=== PATIENT | female | born 1990 | race Hispanic/Latino ===

== ENCOUNTER 2018-11-10 22:15 | Emergency (ER) | payer OTHER, SELFPAY ==
[2018-11-10 23:05] LABS: Bilirubin Negative (Negative); Blood, Urine Moderate (Negative); Clarity Slightly Cloudy (Clear); Glucose, Urine (Dipstick) Negative (Negative); Leukocyte Negative (Negative); Nitrite Negative (Negative); Protein, Urine (Dipstick) Trace mg/dL (Neg-Trace); Urobilinogen 0.2 mg/dL (0.2-1.0); pH, Urine 7.5 (5.0-9.0)
[2018-11-10 23:07] LABS: #Basophils 0.2 thou/uL (0.0-0.2); #Eosinphils 0.2 thou/uL (0.0-0.7); #Lymphocytes 2.4 thou/uL (1.20-3.40); #Monocytes 0.7 thou/uL (0.11-0.59); #Neutrophils 7.2 thou/uL (1.40-6.50); %Basophils 1.8 % (0.0-1.0); %Eosinophils 2.3 % (0.0-10.0); %Lymphocytes 22.1 % (21.0-51.0); %Monocytes 6.6 % (0.0-10.0); %Neutrophils 67.2 % (42.0-75.0); Hemoglobin 13.3 g/dL (12.0-16.0); Mean Corpuscular HGB CONC 34.8 g/dL (32.0-36.0); Mean Corpuscular Hemoglobin 30.1 pg (27.0-31.0); Mean Corpuscular Volume 86.5 fL (78.0-98.0); Mean Platelet Volume 11.3 fL (7.4-10.4); Platelet Count 261 thou/uL (130-400); RBC Distribution Width 11.8 % (11.5-14.5); Red Blood Cell (RBC) Count 4.43 mill/uL (4.20-5.40); White Blood Cell (WBC) Count 10.6 thou/uL (4.8-10.8)
[2018-11-10 23:11] LABS: Bacteria/HPF None Seen HPF (None Seen); Crystals/HPF 2+ AMORPH PHOS HPF (Negative); Hyaline Casts/LPF 0-3 HYALINE CAST LPF (0-3 Hyaline); Squamous Epithelial 0-3 HPF (0-3); WBC/HPF 0-3 HPF (0-3)
--- NOTE | 2018-11-11 08:31 | ULT ---
PRELIMINARY REPORT/[facility]/EMERGENTY AFTER-HOURS PROCEDURE US First Trimester, Transabdominal EXAM DATE/TIME: 11/11/2018 12:24 AM CLINICAL HISTORY: 28 years old, female; Pain and signs and symptoms; Lmp or gestational age (in weeks): 8w5d; Antepartu m complications; Bleeding and other: Spotting; complicated by abdominal or pelvic pain; Low er; First trimester; TECHNIQUE: Real-time transabdominal obstetrical ultrasound of the maternal pelvis and a first trimester pregnanc y, less than 14 weeks 0 days, with image documentation. COMPARISON: No relevant prior studies available. FINDINGS: There is a live single intrauterine with an estimated heart rate of 171 beats per min [place]. GESTATIONAL SAC - 3.7 cm - C/W 9 weeks 0 days CRL - 17.7 mm - C/W 8 weeks 2 days YOLK SAC - 5.1 mm There are no uterine abnormalities or significant free intraperitoneal fluid. The adenxa are unremark able. IMPRESSION: Single live intrauterine with an estimated gestational age of 8 weeks 5 days by ultrasound criteria. Expected due date 06/18/2019 by ultrasound criteria Thank you for allowing us to participate in the care of your patient. Dictated and Authenticated by: Terrance Dumont MD 11/11/2018 1:11 AM Central Time ([place] & [place]) FINAL REPORT EMERGENT AFTER HOURS PELVIC ULTRASOUND: HISTORY: Vaginal bleeding with . FINDINGS: Real-time imaging of the pelvis was obtained both transabdominally as well as with an endovaginal pro be. This shows a single viable intrauterine . heart rate is 171 b.p.m. No subchorio jnaine bleed is identified. The crown to rump length measurements are 1.8 cm corresponding to 8 weeks 2 days, gestational sac measures 3.7 cm corresponding to 9 weeks 0 days. The adnexa were not visualized on this exam. IMPRESSION: 1. Single viable intrauterine . Measurements would correspond to a gestational age of 8 we eks 5 days with estimated date of delivery 06/18/2019. 2. This report is in agreement with the temporary report issued by [facility]. POS: OFF
[2018-11-14 01:07] LABS: Chlamydia by PCR Not Detected (NotDetected); GC by PCR Not Detected (NotDetected)
== END 2018-11-11 01:38 | disposition home or self-care (01) ==
LOC: SCSER 22:15
DX: O20.0 Threatened abortion (principal); Z3A.01 Less than 8 weeks gestation of pregnancy
CPT/HCPCS: 76856; 81003; 81015; 84702; 85025; 86900; 86901; 87480; 87491; 87510; 87591; 87660

== ENCOUNTER 2018-12-05 23:07 | Emergency (ER) | payer OTHER ==
[2018-12-05 23:54] LABS: #Basophils 0.1 thou/uL (0.0-0.2); #Eosinphils 0.1 thou/uL (0.0-0.7); #Lymphocytes 2.3 thou/uL (1.20-3.40); #Monocytes 0.6 thou/uL (0.11-0.59); #Neutrophils 8.4 thou/uL (1.40-6.50); %Eosinophils 1.2 % (0.0-10.0); %Lymphocytes 20.1 % (21.0-51.0); %Monocytes 4.9 % (0.0-10.0); %Neutrophils 72.8 % (42.0-75.0); Hemoglobin 12.6 g/dL (12.0-16.0); Mean Corpuscular HGB CONC 35.6 g/dL (32.0-36.0); Mean Corpuscular Hemoglobin 30.2 pg (27.0-31.0); Mean Corpuscular Volume 84.8 fL (78.0-98.0); Mean Platelet Volume 9.6 fL (7.4-10.4); Platelet Count 235 thou/uL (130-400); RBC Distribution Width 11.7 % (11.5-14.5); Red Blood Cell (RBC) Count 4.17 mill/uL (4.20-5.40); White Blood Cell (WBC) Count 11.5 thou/uL (4.8-10.8)
[2018-12-06 00:05] LABS: ALT (SGPT) 40 U/L (8-55); AST (SGOT) 23 U/L (5-34); Alkaline Phosphatase 40 U/L (40-150); Anion Gap 13 mmol/L (10-20); BUN (Urea Nitrogen) 7 mg/dL (7.0-18.7); Bilirubin, Total 0.3 mg/dL (0.2-1.2); Calc. Creatinine Clearance 0 mL/min (70-130); Calcium 9.4 mg/dL (7.8-10.44); Carbon Dioxide 21 mmol/L (22-29); Chloride 107 mmol/L (98-107); Estimated GFR-MDRD Greater than 90; Globulin 2.6 g/dL (2.4-3.5); Glucose 95 mg/dL (70-105); Lipase 18 U/L (8-78); Potassium 3.5 mmol/L (3.5-5.1); Protein, Total 6.6 g/dL (6.0-8.3); Sodium 137 mmol/L (136-145)
[2018-12-06 00:13] LABS: Bilirubin Negative (Negative); Blood, Urine Moderate (Negative); Clarity Clear (Clear); Glucose, Urine (Dipstick) Negative (Negative); Leukocyte Negative (Negative); Nitrite Negative (Negative); Protein, Urine (Dipstick) Negative (Neg-Trace); Specific Gravity, Urine 1.025 (1.005-1.030); Urobilinogen 0.2 mg/dL (0.2-1.0); pH, Urine 6.5 (5.0-9.0)
[2018-12-06 00:18] LABS: Bacteria/HPF 2+ HPF (None Seen); Hyaline Casts/LPF 0-3 HYALINE CAST LPF (0-3 Hyaline); WBC/HPF 0-3 HPF (0-3)
== END 2018-12-06 00:41 | disposition home or self-care (01) ==
LOC: SCSER 23:07
DX: O99.611 Diseases of the digestive system complicating pregnancy, first trimester (principal); K59.00 Constipation, unspecified; Z3A.12 12 weeks gestation of pregnancy
CPT/HCPCS: 80053; 81003; 81015; 83690; 84702; 85025; 99284

== ENCOUNTER 2019-02-03 08:25 | Outpatient (CLI) | payer OTHER ==
--- NOTE | 2019-02-03 09:24 | ULT ---
ULTRASOUND OBSTETRICAL COMPLETE: DATE: 02/03/2019. HISTORY: A 28-year-old female "Z3A.20, 20 weeks gestation of ". Evaluate size, dates, and a natomy. FINDINGS: number: Frank. lie: Breech. Maternal cervix: 4 cm in length and closed. Placenta: Posterior. No placenta previa. Amniotic fluid volume: JULIO 14 cm. heart rate: 130 b.p.m. The following anatomy is visualized, with no evidence of anomalies: Head, lateral ventricles, cerebellum, nose and lips, spine, upper limbs, lower limbs, four chamber he art, umbilical cord, cord insertion, stomach, kidneys, and bladder. biometry: Head circumference (HC): 18.5 cm 20 w 6 d Biparietal diameter (BPD): 4.7 cm 20 w 2 d Abdominal circumference (AC): 15 cm 20 w 2 d Femur length (FL): 3.4 cm 20 w 6 d Average ultrasound age (AUA): 20 w 4 d Estimated date of delivery (SAURABH): 06/19/2019. Last menstrual period (LMP): 09/09/2018. Gestational age by LMP: 21 w 0 d. Estimated weight (EFW): 358 g +/- 52 g (0 lb 13 oz +/- 2 oz). IMPRESSION: 1. Live 2nd trimester intrauterine gestation. 2. Estimated gestational age of 20 weeks, 4 days. 3. lie breech. 4. No anatomical abnormalities. jn [] POS: TPC
== END 2019-02-03 08:26 | disposition home or self-care (01) ==
LOC: BICULT 08:25
PROVIDERS: ATTEND Family Medicine
DX: Z34.92 Encounter for supervision of normal pregnancy, unspecified, second trimester (principal); Z3A.20 20 weeks gestation of pregnancy; O32.1XX0 Maternal care for breech presentation, not applicable or unspecified
CPT/HCPCS: 76805

== ENCOUNTER 2019-04-24 03:25 | Day surgery (SDC) | payer OTHER ==
[2019-04-24 04:00] VITALS: BMI 35.8
--- NOTE | 2019-04-24 05:08 | PDOC.EVN ---
Event Note - Event Note Event Note: OBGYN Faculty I have seen and evaluated this patient in triage B. Agree with Solitario Guardado's assessment. See full H&P.
--- NOTE | 2019-04-24 05:11 | PDOC.FPROB ---
FMR OB H&P: Medications - Current Home Medications: Medication Instructions Recorded Confirmed Type 21/Iron Fu/Folic Acid 1 tablet PO DAILY 04/24/19 04/24/19 History [ Complete Caplet] Allergies/Adverse Reactions: Allergies Allergy/AdvReac Type Severity Reaction Status Date / Time No Known Allergies Allergy Verified 04/24/19 04:02 FMR OB H&P: A/P - Problem List (1) Current Visit: Yes Status: Acute Discussion: Date/Time: 04/24/19 0510 PCP: Chintan Stafford HPI: This is a 29 yo at 32.0 wks presenting for abdominal cramping. She states the cramping started earlier tonight and is in the epigastric area. She is not currently having any pain. She denies the pain being exacerbated by eating. She denies fevers, chills, sweats, N/V/D, burning, or blood with urination. She is worried she might be having contractions. She denies leakage, vaginal bleeding or vaginal discharge, feels baby moving often. Denies SAEZ, visual changes, SOB, or swelling. History: OB hx: G1 PMH: neg PSH: cholecystectomy Meds: PNV All: NKDA Soc Hx: denies smoking, alcohol, drugs Fam Hx: denies downs, congenital defects, + fm hx of diabetes REVIEW OF SYSTEMS: Gen: no fever, chills, or sweats Neuro: no numbness/tingling, no weakness, denies headache ENT: denies congestion Eyes: no visual changes Resp: no cough, no SOB, no wheeze Card: denies chest pain, no palpitations GI: no N/V/D, no abdominal pain : no dysuria, no hematuria Skin: no rash, no erythema Psych: denies hx anxiety/depression Vitals: T: 98.4 R: 18 BP: 109/60 P:75 Sat: 98% on RA Wt: 88kg PHYSICAL EXAMINATION: General: NAD, alert and oriented x3 HEENT: EOMI, normal sclera Neck: Supple. Full ROM. Heart/Cardiovascular System: RRR, Cap refill < 3 seconds, no rub, no murmur Lungs/Respiratory System: clear to auscultation bilaterally. No increased work of breathing. Room air. Abdomen/Gastro-Intestinal System: no abdominal tenderness, normal bowel sounds, Gravid Extremities: Warm extremities. No cyanosis or edema. Neuro: No gross deficits appreciated Psychiatry: Awake, Alert and cooperative with exam Skin: No lesions, rashes Musculoskeletal: Full ROM A/P: This is a 29 yo at 32.0 wks presenting for abdominal cramping FHT: baseline 140, no decels, great variability, accels present [place]: 1-2 contractions overs a 45 minute period # Abdominal Cramping - Suspect Sharkey-rolon cxns vs GERD, no symptoms currently - Was breech on anatomy scan, vertex today on bedside US - Tolerated PO water while in triage - Home with precautions, f/u with PCP OBGYN Faculty: Agree with assessment and plan. I have seen the patient at [facility] and completed my evaluation. This is a 29 yo at 32.0 wks presenting for abdominal cramping. She states the cramping started earlier tonight and is in the epigastric area. She is not currently having any pain. No evidenec true labor clinically. no VB nor LOF. Good FM. OK for outpatient are.
== END 2019-04-24 05:15 | disposition home or self-care (01) ==
LOC: L&D/OP 03:25
PROVIDERS: ATTEND Family Medicine
DX: O99.89 Other specified diseases and conditions complicating pregnancy, childbirth and the puerperium (principal); R10.13 Epigastric pain; Z90.49 Acquired absence of other specified parts of digestive tract; Z3A.32 32 weeks gestation of pregnancy
CPT/HCPCS: 99282

== ENCOUNTER 2019-06-16 01:23 | Inpatient (IN) | payer OTHER ==
[2019-06-16 01:53] VITALS: BMI 38.0
[2019-06-16] MEDS ORDERED: Butorphanol Tartrate 1 MG/ML VIAL SLOW IVP PRN (04:03)
[2019-06-16] MEDS ORDERED: Lidocaine 1% (PF) 30 ML VIAL SC PRN (04:03)
[2019-06-16] MEDS ORDERED: hydrALAZINE 20 MG/ML VIAL SLOW IVP PRN ×2 (04:03→19:26)
[2019-06-16] MEDS ORDERED: Ondansetron PF 4 MG/2 ML Vial IVP PRN ×2 (04:03→09:33)
[2019-06-16] MEDS ORDERED: Ibuprofen 800 MG TAB PO PRN (04:03)
[2019-06-16] MEDS ORDERED: Lactated Ringer's 1,000 ML IV SCH (04:15)
[2019-06-16] MEDS: Lactated Ringer's 1,000 ML IV SCH ×2 (04:25→10:01)
[2019-06-16 04:48] LABS: Hemoglobin 12.2 g/dL (12.0-16.0); Mean Corpuscular HGB CONC 35.3 g/dL (32.0-36.0); Mean Corpuscular Hemoglobin 31.8 pg (27.0-31.0); Mean Corpuscular Volume 90.1 fL (78.0-98.0); Mean Platelet Volume 9.5 fL (7.4-10.4); Platelet Count 211 thou/uL (130-400); RBC Distribution Width 11.9 % (11.5-14.5); Red Blood Cell (RBC) Count 3.85 mill/uL (4.20-5.40); White Blood Cell (WBC) Count 15.4 thou/uL (4.8-10.8)
[2019-06-16 05:29] LABS: HBSAg Index 0.18 S/CO (0-0.99); Hep B Surf Ag Non-Reactive S/CO (NonReactive)
[2019-06-16] MEDS ORDERED: Fentanyl 4 mcg/Bup 0.1% Cadd 100 ML ONE ×2 (06:15→14:32)
[2019-06-16 07:02] LABS: Syphilis Antibody Nonreactive (Nonreactive); Syphilis Antibody Index 0.03 S/CO (<1.00 Non-Reactive)
[2019-06-16] MEDS ORDERED: diphenhydrAMINE 50 MG/ML VIAL ONE (09:23)
[2019-06-16] MEDS ORDERED: ePHEDrine/0.9% NaCl/PF SYRINGE 50 mg/10 ml SLOW IVP PRN (09:33)
[2019-06-16] MEDS ORDERED: Promethazine HCl 25 MG/ML VIAL IM PRN (09:33)
[2019-06-16] MEDS ORDERED: Acetaminophen 325 MG TAB PO PRN (09:33)
[2019-06-16] MEDS ORDERED: Naloxone HCl 0.4 mg/ml Vial IVP PRN ×2 (09:33)
[2019-06-16] MEDS ORDERED: diphenhydrAMINE 50 MG/ML VIAL IVP PRN (09:33)
[2019-06-16] MEDS ORDERED: Lactated Ringer's 500 ML IV PRN (09:33)
[2019-06-16] MEDS ORDERED: Communication Order-Pharmacy FS SCH (09:45)
[2019-06-16] MEDS ORDERED: Fentanyl 4 mcg/Bupivacaine 0.1% Cassette 100 ML EPIDURAL SCH (09:45)
[2019-06-16] MEDS ORDERED: Bupivacaine/Epinephrine 0.25% 30 ML VIAL ONE (10:00)
[2019-06-16] MEDS ORDERED: Lidocaine 2% MPF 10 ML AMP (For Epidural Use) ONE (10:00)
[2019-06-16] MEDS ORDERED: NS w/ Oxytocin 10 units 500 ML ONE (11:45)
--- NOTE | 2019-06-16 15:01 | PDOC.EVN ---
Event Note - Event Note Event Note: Here to assess patient. Had minimal change after AROM this morning. IUPC placed and Pitocin started about 1115am. FWB Category I. SVE now 9.5/100/0. Continue expectant management.
[2019-06-16] MEDS: NS / Oxytocin 40 units/1000ml 1,000 ML IV PRN ×2 (17:00→18:09)
--- NOTE | 2019-06-16 17:24 | PDOC.OPDEL ---
OB Operative/Delivery Note Delivery Dr/Surgeon: Dylan Pre-Delivery Diagnosis: active labor Procedure/Post Delivery Dx: spontaneous vaginal delivery (Head OA, shoulders and body easily followed, no nuchal cord, mouth and nares bulb suctioned.) Weeks gestation: 40 Anesthesia: epidural - Findings A Sex: female - 1 min: 8 - 5 min: 9 - Additional Findings/Plan Placenta delivered: spontaneous Repaired Obstetrical Laceration: 2nd degree (Repaired with 2.0 vicryl in stnadard running fashion.) Estimated blood loss: 353 ml Post delivery plan: routine recovery
[2019-06-16] MEDS ORDERED: Preparation H Ointment 28 GM TUBE PR PRN (19:26)
[2019-06-16] MEDS ORDERED: NS / Oxytocin 40 units/1000ml 1,000 ML IV SCH (19:26)
[2019-06-16] MEDS ORDERED: HYDROcodone/Acetaminophen 5/325 mg Tablet PO PRN (19:26)
[2019-06-16] MEDS ORDERED: Bisacodyl 10 MG SUPP PR PRN (19:26)
[2019-06-16] MEDS ORDERED: Benzocaine-Menthol 82.5 ML CAN TOP PRN (19:26)
[2019-06-16] MEDS ORDERED: Milk Of Magnesia 30 ML UDCUP PO PRN (19:26)
[2019-06-16] MEDS ORDERED: Lanolin Ointment 7 GM TUBE TOP PRN (19:26)
[2019-06-16] MEDS ORDERED: Sodium Chloride 0.9% 10 ML ONE (22:03)
[2019-06-16] MEDS: Ibuprofen 800 MG TAB PO SCH (22:03)
[2019-06-16] MEDS: Docusate Calcium (SURFAK) 240 MG CAP PO SCH (22:04)
[2019-06-17] MEDS: Ferrous Sulfate 325 MG TAB PO SCH ×2 (06:04→14:18)
[2019-06-17] MEDS: Ibuprofen 800 MG TAB PO SCH ×2 (06:21→14:18)
[2019-06-17] MEDS ORDERED: Adacel (T-DAP) 0.5 ML SYRINGE IM ONE (09:00)
[2019-06-17] MEDS ORDERED: Measles/Mumps/Rubella 10 MCG/0.5 ML VIAL SC ONE (09:00)
[2019-06-17] MEDS: Docusate Calcium (SURFAK) 240 MG CAP PO SCH (09:23)
--- NOTE | 2019-06-17 15:16 | PDOC.PP ---
Post Progress Note Post Day #: 1 Subjective: DOing well. No pain. Bleeding normal. Working on feeding - baby has been very slow to feed, taking very little, no latch to the breast yet. PO intake tolerated: yes Flatus: yes Ambulation: yes Vital Signs (12 hours) Temp Pulse Resp BP Pulse Ox 06/17/19 11:48 97.8 F 77 20 122/89 06/17/19 08:10 97.7 F 78 20 120/67 96 06/17/19 04:15 97.9 F 73 16 123/77 Weight Weight 208 lb - Physical Examination General: NAD Cardiovascular: no m/r/g, RRR Respiratory: clear to auscultation bilaterally, non-labored breathing Abdominal: + bowel sounds, lochia, no distention, appropriately TTP Result Diagrams: 06/16/19 04:35 Additional Labs: Post Labs Blood Type A POSITIVE 06/16/19 04:35 Hep Bs Antigen Non-Reactive S/CO (NonReactive) 06/16/19 04:35 (1) Vaginal delivery Code(s): O80 - ENCOUNTER FOR FULL-TERM UNCOMPLICATED DELIVERY Status: Acute - Assessment/Plan Routine care May D/C home at 24 hours.
[2019-06-17 16:17] VITALS: BP 121/60; TEMP 97.9
== END 2019-06-17 19:40 | disposition home or self-care (01) | DRG 807 ==
LOC: L&D/OP 01:23 → L&D 04:01 → 3SE 19:22
PROVIDERS: ADMIT Family Medicine; ATTEND Family Medicine
PROC: 10E0XZZ Delivery of Products of Conception, External Approach (ICD-10-PCS; principal; 2019-06-17)
PROC: 0KQM0ZZ Repair Perineum Muscle, Open Approach (ICD-10-PCS; 2019-06-17)
PROC: 10907ZC Drainage of Amniotic Fluid, Therapeutic from Products of Conception, Via Natural or Artificial Opening (ICD-10-PCS; 2019-06-17)
PROC: 10H07YZ Insertion of Other Device into Products of Conception, Via Natural or Artificial Opening (ICD-10-PCS; 2019-06-17)
PROC: 3E033VJ Introduction of Other Hormone into Peripheral Vein, Percutaneous Approach (ICD-10-PCS; 2019-06-17)
PROC: 3E0234Z Introduction of Serum, Toxoid and Vaccine into Muscle, Percutaneous Approach (ICD-10-PCS; 2019-06-17)
DX: O48.0 Post-term pregnancy (principal); Z37.0 Single live birth; Z3A.40 40 weeks gestation of pregnancy; Z90.49 Acquired absence of other specified parts of digestive tract; O70.1 Second degree perineal laceration during delivery; Z23 Encounter for immunization
CPT/HCPCS: 36415; 51702; 85027; 86780; 86850; 86900; 86901; 87340; 88307; 99285; J1200; J2001; J2590